=== PATIENT | female | born 1990 | race African-American/Black ===

== ENCOUNTER 2019-09-14 17:27 | Emergency (ER) | payer SELFPAY ==
[2019-09-14] MEDS ORDERED: ONDANSETRON 4 MG TAB.RAPDIS PO ONE (19:21)
--- NOTE | 2019-09-14 19:23 | ER Document Report ---
ED Medical Screen (RME) - General Chief Complaint: Abdominal Pain Stated Complaint: NAUSEA, ABDOMINAL PAIN Time Seen by Provider: 09/14/19 18:58 Notes: Healthy 28-year-old female approximately 6 weeks presents to the emergency department with chief complaint of nausea and suprapubic abdominal cramping. Patient was seen at [facility] this past Tuesday and diagnosed with a urinary tract infection and with . This was confirmed by transvaginal ultrasound and I am currently awaiting fax results from [facility] on the ultrasound. Currently patient states that she is having some cramping-like pain that is been intermittent for the past several days. Denies vaginal bleeding, denies abnormal vaginal discharge, denies urinary symptoms. Denies fevers or chills, denies vomiting. Denies unilateral sharp, stabbing adnexal pain Exam: Well-appearing in no acute distress, lungs clear to auscultation all gomes, regular cardiac rate and rhythm, mild suprapubic tenderness that does spread bilaterally, abdomen soft I have greeted and performed a rapid initial assessment of this patient. A comprehensive ED assessment and evaluation of the patient, analysis of test results and completion of medical decision making process will be conducted by an additional ED providers. Past Medical History - Social History Frequency of alcohol use: None Drug Abuse: None Physical Exam - Vital signs Vitals: Temp Pulse Resp BP Pulse Ox 98.3 F 79 18 121/60 100 09/14/19 17:50 09/14/19 17:50 09/14/19 17:50 09/14/19 17:50 09/14/19 17:50 Course - Vital Signs Vital signs: Temp Pulse Resp BP Pulse Ox 98.3 F 79 18 121/60 100 09/14/19 17:50 09/14/19 17:50 09/14/19 17:50 09/14/19 17:50 09/14/19 17:50
--- NOTE | 2019-09-14 19:46 | ER Document Report ---
HPI - HPI Time Seen by Provider: 09/14/19 18:58 Pain Level: 3 Context: Healthy 28-year-old female approximately 6 weeks presents to the emergency department with chief complaint of nausea and suprapubic abdominal cramping. Patient was seen at [facility] this past Tuesday and diagnosed with a urinary tract infection and with . This was confirmed by transvaginal ultrasound and I am currently awaiting fax results from [place] on the ultrasound. Currently patient states that she is having some cramping-like pain that is been intermittent for the past several days. Denies vaginal bleeding, denies abnormal vaginal discharge, denies urinary symptoms. Denies fevers or chills, denies vomiting. Denies unilateral sharp, stabbing adnexal pain Past Medical History - Social History Smoking Status: Never Smoker Frequency of alcohol use: None Drug Abuse: None Family History: None Patient has suicidal ideation: No Patient has homicidal ideation: No Vertical Provider Document - CONSTITUTIONAL Notes: PHYSICAL EXAMINATION: Reviewed vital signs and charting by RN GENERAL: Alert, interacts well. No acute distress. HEAD: Normocephalic, atraumatic. EYES: Pupils equal and round. Extraocular movements intact. ENT: Oral mucosa moist, tongue midline. NECK: Full range of motion. Trachea midline. LUNGS: Clear to auscultation bilaterally, no wheezes, rales, or rhonchi. No respiratory distress. HEART: Regular rate and rhythm. No murmur ABDOMEN: soft, suprapubic tenderness, no unilateral tenderness to palpation. No distention. Bowel sounds present EXTREMITIES: Moves all 4 extremities spontaneously. No edema, No cyanosis. PSYCH: Normal affect, normal mood. SKIN: Warm, dry, normal turgor. No rashes or lesions noted. Course - Re-evaluation Re-evalutation: 09/14/19 19:43 Patient is very well-appearing no acute distress, patient was seen at [facility] this past Tuesday and was diagnosed with a urinary tract infection and has a diagnosis of . A transvaginal ultrasound was performed and I requested results to be faxed over to the emergency department. The report showed a single living intrauterine being identified. Based on crown- rump length the ages 6-week 1 day 6 days. There was heart activity documented at 130 bpm. There was a posterior intramural muscular mass measuring 10 mm consistent with uterine leiomyomata. Patient denies any vaginal bleeding and is having abdominal cramping in the suprapubic area. Patient has not yet filled her prescription given to her for Macrobid. Plan is to obtain a urine to confirm UTI and positive I will change her to Keflex and tell her not to fill the Macrobid. 09/14/19 20:03 Urine did show large leuk esterase with 4 WBCs and 4 squamous of the ileal cells. I have sent it for culture. I am going to give the patient a prescription for Keflex and treat regardless due to the first trimester risks of miscarriage with a UTI. Patient is stable for discharge. - Vital Signs Vital signs: Temp Pulse Resp BP Pulse Ox 98.3 F 79 18 121/60 100 09/14/19 17:50 09/14/19 17:50 09/14/19 17:50 09/14/19 17:50 09/14/19 17:50 Discharge - Discharge Clinical Impression: related nausea, antepartum, Abdominal cramping affecting , antepartum, Urinary tract infection affecting care of mother in first trimester, antepartum Condition: Good Disposition: HOME, SELF-CARE Additional Instructions: Your urine shows findings consistent with a urinary tract infection. Please take all the antibiotics as directed even if your symptoms have improved. [facility] here in town to establish obstetrics. Return to emergency room if you develop fever >101F, persistent vomiting, become lethargic, have severe pain in your sides, have vaginal bleeding, severe cramping, or any other symptoms that are concerning to you. You have also been seen for nausea during . You should continue to drink plenty of water and consider taking a solution such as Pedialyte if your having difficulty eating food. Please return if you become unable to drink any fluids for more than 12 hours, urinate less than twice a day, pass out, or have any other symptoms that are concerning to you. For nausea and vomiting during I recommend: Start with 10-12.5 mg of pyridoxine (vitamin B6) three times a day for 2 days. If not fully effective, Increase to 12.5 mg of pyridoxine four times a day for 2 days. If not fully effective, Increase to 25 mg of pyridoxine three times a day for 2 days. If not fully effective, Continue 25 mg pyridoxine 3 times a day, and add 12.5 mg of doxylamine before bedtime each day for 2 days. If not fully effective, Continue 25 mg pyridoxine 3 times a day, and take 12.5 mg of doxylamine twice a day. If not fully effective, Continue 25 mg pyridoxine 3 times a day, and take 12.5 mg of doxylamine three times a day. If not fully effective, Continue 25 mg pyridoxine 3 times a day, and 12.5 mg of doxylamine 3 times a day, while adding Emetrol, one to two tablespoons (15-30 cc) taken once or twice a day as needed. (Emetrol is an ckwb-[id number] mixture of sugar syrups and phosphoric acid [phosphorylated carbohydrate solution]) that acts by soothing the actual wall of the gastrointestinal tract). If not fully effective, Consult with your doctor. Referrals: GEORGETTE RAMOS MD [ACTIVE STAFF] - Follow up as needed
[2019-09-14 19:48] LABS: APPEARANCE,URINE SLIGHTLY-CLOUDY; BILIRUBIN,URINE NEGATIVE (NEGATIVE); COLOR,URINE YELLOW; GLUCOSE, URINE NEGATIVE (NEGATIVE); KETONES,URINE NEGATIVE (NEGATIVE); LEUKOCYTE ESTERASE,URINE LARGE (NEGATIVE); NITRITE,URINE NEGATIVE (NEGATIVE); PROTEIN,URINE NEGATIVE (NEGATIVE); URINE SPECIFIC GRAVITY 1.027; UROBILINOGEN,URINE NEGATIVE mg/dL (<2.0)
[2019-09-14] MEDS ORDERED: ONDANSETRON ODT 4 MG TAB (6 TAB/ER DISP) PO PRN (20:38)
[2019-09-14 21:21] VITALS: BP 92/65
== END 2019-09-14 21:21 | disposition home or self-care (01) ==
LOC: ER 17:27
DX: O23.41 Unspecified infection of urinary tract in pregnancy, first trimester (principal); O26.891 Other specified pregnancy related conditions, first trimester; R11.0 Nausea; R10.30 Lower abdominal pain, unspecified; Z3A.01 Less than 8 weeks gestation of pregnancy
CPT/HCPCS: 99284; 87086; 81001; S0119

== ENCOUNTER → 2019-10-23 | Outpatient (CLI) | payer SELFPAY ==
--- NOTE | 2019-10-23 10:35 | RADIOLOGY REPORT (SQ) ---
EXAM DESCRIPTION: U/S [id number] TRNABD 1GES W/ODOP COMPLETED DATE/TIME: 10/23/2019 8:50 am REASON FOR STUDY: ENCOUNTER FOR SUPERVISION OF OTHER NORMAL Z34.81 ENCOUNTER FOR SUPRVSN OF NORMAL , FIRST TRIM COMPARISON: None. TECHNIQUE: Transabdominal static and realtime grayscale images acquired of the pelvis. Additional se lected spectral and color Doppler images recorded. All images stored on PACs. bHCG: Not available. CLINICAL DATES: Not available. LIMITATIONS: None. FINDINGS: FETUS: Single Living intrauterine . ULTRASOUND EGA: 12 weeks 3 days. ULTRASOUND FELA: 05/03/2020. EFW: Not applicable less than 20 weeks. CRL: 6.0 cm. FHR: 178 beats per minute. SURVEY: Too early to assess. AMNIOTIC FLUID: Adequate amount. PLACENTA: Not yet developed due to early gestation. SUBCHORIONIC BLEED: No. SIZE OF BLEED: Not applicable. UTERUS: No masses. No anomalies. CERVICAL LENGTH: 3.2 cm. Closed. RIGHT ADNEXA: There are 2 simple right renal cyst. There is a 3.8 x 3.9 x 4.7 cm hypoechoic region w ithin the right ovary most likely complex cyst. No adnexal free fluid. No adnexal masses. LEFT ADNEXA: Normal ovary with normal vascular flow. No adnexal free fluid. No adnexal masses. FREE FLUID: None. OTHER: No other significant finding. IMPRESSION: Living intrauterine gestation. Estimated gestational age is 12 weeks 3 days. 2 simple right ovarian cyst. A single complex 3.8 x 3.9 x 4.7 cm cyst. Trimester of : First trimester - 0 to 13 weeks. TECHNICAL DOCUMENTATION: JOB ID: [id number] [employer]- All Rights Reserved rev-03/17 Reading location - IP/workstation name: [email or web address]
== END ==
LOC: RAD 08:32
PROVIDERS: ATTEND Midwife
DX: O34.81 Maternal care for other abnormalities of pelvic organs, first trimester (principal); N83.291 Other ovarian cyst, right side; Z3A.12 12 weeks gestation of pregnancy
CPT/HCPCS: 76801

== ENCOUNTER → 2019-12-25 | Outpatient (CLI) | payer SELFPAY ==
--- NOTE | 2019-12-25 12:27 | RADIOLOGY REPORT (SQ) ---
EXAM DESCRIPTION: U/S OB 14+ TRNABD 1GES W/O DOP COMPLETED DATE/TIME: 12/25/2019 9:33 am REASON FOR STUDY: Z34.82 ENCOUNTER FOR SUPRVSN OF NORMAL , SECOND TRIMESTER Z34.82 ENCOUNT ER FOR SUPRVSN OF NORMAL , SECOND TRI COMPARISON: 10/23/2019 TECHNIQUE: Static and Dynamic grayscale imaging performed of gravid uterus using transabdominal appr oach. Additional selected color Doppler and spectral images recorded. All stored on PACS. LIMITATIONS: None. FINDINGS: FETUSES SEEN:1 EGA: 20 weeks 6 days. Calculated using BPD,FL,HC,AC documented on images. This is 4 days less than t he clinical dates. FELA: 05/07/2020 EFW: 397 grams PERCENTILE: Not calculated LVP: 3.4 x 3.7 cm PLACENTA: Anterior grade 1 PRESENTATION: Variable. ANATOMY: HEART RATE: 145 beats per minute. FOUR CHAMBER HEART: Visualized. THREE VESSEL CORD: Yes. CORD INSERTION: Visualized. KIDNEYS AND BLADDER: Visualized. Appear normal. STOMACH: Visualized. Appears normal. SPINE: Normal as visualized. BRAIN AND LATERAL VENTRICLES: Visualized. Appear normal. OTHER: No other significant finding. MATERNAL ADNEXA: Left ovary is normal. Right ovary is not seen. CERVICAL LENGTH: 3.3 cm. Closed. OTHER: No other significant finding. IMPRESSION: LIVING INTRAUTERINE . ESTIMATED GESTATIONAL AGE 20 weeks 6 days. NO VISUALIZED ANOMALIES. Trimester of : Second trimester - 13 weeks 1 day to 27 weeks 6 days. TECHNICAL DOCUMENTATION: JOB ID: [id number] 2010 [employer]- All Rights Reserved Reading location - IP/workstation name: [email or web address]
== END ==
LOC: RAD 08:45
PROVIDERS: ATTEND Midwife
DX: Z34.82 Encounter for supervision of other normal pregnancy, second trimester (principal)
CPT/HCPCS: 76805

== ENCOUNTER 2020-01-14 02:22 | Emergency (ER) | payer MEDICAID ==
[2020-01-14 02:30] VITALS: BP 103/61
--- NOTE | 2020-01-14 03:06 | ER Document Report ---
HPI - HPI Time Seen by Provider: 01/14/20 02:50 Pain Level: 4 Notes: Patient is a 29-year-old female G3, P2 approximately 3 weeks presents complaining of having nasal congestion, sinus pressure, postnasal drip, occasional dry cough for over a month. Patient states that the cough is primarily from the drip in the throat and does not feel like it is in her chest. She is able to eat and drink without difficulty. She is urinating normally and having normal bowel movements. She has not had any pelvic pains or vaginal bleeding that is new to her. She has not had any complications with her as of yet. She does have to establish with an [employer] to this area as she recently moved here. She has been using some [id number] meds that are safe in without significant relief. Denies any headache, fever, neck pain, sore throat, chest pain, palpitations, syncope, shortness of breath, wheeze, dyspnea, abdominal pain, nausea/vomiting/diarrhea, urinary retention, dysuria, hematuria, back pain, or rash. - ROS Systems Reviewed and Negative: Yes All other systems reviewed and negative - CONSTITUTIONAL Constitutional: DENIES: Fever, Chills - CARDIOVASCULAR Cardiovascular: DENIES: Chest pain - RESPIRATORY Respiratory: REPORTS: Coughing. DENIES: Trouble Breathing - GASTROINTESTINAL Gastrointestinal: DENIES: Abdominal Pain - REPRODUCTIVE LMP: 23 wks preg Reproductive: REPORTS: : Past Medical History - Social History Smoking Status: Never Smoker Family History: None Patient has suicidal ideation: No Patient has homicidal ideation: No Vertical Provider Document - CONSTITUTIONAL Agree With Documented VS: Yes Notes: PHYSICAL EXAMINATION: GENERAL: Well-appearing, well-nourished and in no acute distress. A&Ox4. Answers questions appropriately. Moves comfortably w/o notable distress HEAD: Atraumatic, normocephalic. EYES: Pupils equal round and reactive to light, extraocular movements intact, sclera anicteric, conjunctiva are normal. ENT: Nares patent and with clear discharge. oropharynx no erythema without exudates. No tonsilar hypertrophy without erythema or exudate. No palatine shift. Uvula midline. No tongue protrusion. No drooling, hoarseness, or airway compromise. Moist mucous membranes. + mild maxillary sinus tenderness. NECK: Normal range of motion, supple without lymphadenopathy. No rigidity/m eningismus. LUNGS: Breath sounds clear to auscultation bilaterally and equal. No wheezes rales or rhonchi. No retractions HEART: Regular rate and rhythm without murmurs, rubs, gallops. ABDOMEN: Soft, nontender, nondistended abdomen. No guarding, no rebound. Normal bowel sounds present. No CVA tenderness bilaterally. NEUROLOGICAL: Normal speech, normal gait. PSYCH: Normal mood, normal affect. SKIN: Warm, Dry, normal turgor, no rashes or lesions noted. - INFECTION CONTROL TRAVEL OUTSIDE OF THE [place] IN LAST 30 DAYS: No Course - Re-evaluation Re-evalutation: 01/14/20 Patient is an afebrile, well-hydrated, 29-year-old female who presents to the emergency department with influenza A. Vitals are acceptable without significant tachycardia, tachypnea, or hypoxia. PE is otherwise unremarkable. Lungs are CTAB. She is nontoxic-appearing and is tolerating p.o. without diffic ulty. Lungs are clear to auscultation bilaterally. Influenza positive. heart tones appropriate. No further labs or imaging warranted at this time. Low suspicion for any meningitis, sepsis, peritonsillar/pharyngeal abscess, respiratory compromise, pneumonia, or other emergent systemic condition at this time. Patient is aware this condition can change from initial presentation and she needs to monitor symptoms closely. Rx for tamiflu. Conservative measures otherwise for symptoms. Recheck with your PCM in 3-5 days. Schedule f/u with OBGYN. Return to the ED with any worsening/concerning symptoms otherwise as reviewed in discharge. Patient is in agreement. - Vital Signs Vital signs: Temp Pulse Resp BP Pulse Ox 98.1 F 84 20 103/61 100 01/14/20 02:29 01/14/20 02:29 01/14/20 02:29 01/14/20 02:29 01/14/20 02:29 Discharge - Discharge Clinical Impression: Influenza Condition: Stable Disposition: HOME, SELF-CARE Additional Instructions: Maintain adequate fluid intake tylenol as needed Nasal saline rinses Humidified air may help Wash your hands regularly Wear a mask when coughing F/u: with your PCM in 3-5 days for a recheck Return to the ED with any fever, altered mental status/behavior, chest pain, palpitations, syncope, headache, neck pain/stiffness, shortness of breath, chest pains, wheezing, drooling, trouble swallowing/breathing, abdominal pain, n/v/d, rash, or worsening/concerning symptoms otherwise. Prescriptions: Oseltamivir Phosphate [Tamiflu 75 mg Capsule] 75 mg PO BID #10 capsule Referrals: LENA FORTE CNM [Primary Care Provider] - Follow up as needed [facility] [Provider Group] - Follow up as needed
[2020-01-14 03:37] LABS: A TYPE INFLUENZA AG POSITIVE (NEGATIVE); B INFLUENZA AG NEGATIVE (NEGATIVE)
== END 2020-01-14 04:05 | disposition home or self-care (01) ==
LOC: ER 02:22
DX: O98.512 Other viral diseases complicating pregnancy, second trimester (principal); J11.1 Influenza due to unidentified influenza virus with other respiratory manifestations; O26.892 Other specified pregnancy related conditions, second trimester; R09.81 Nasal congestion; R51 Headache; R09.82 Postnasal drip; R05 Cough; Z3A.23 23 weeks gestation of pregnancy
CPT/HCPCS: 87804; 99283